=== PATIENT | male | born 1985 | race Caucasian/White ===

== ENCOUNTER 2016-07-05 08:42 | Emergency (ER) | payer OTHER ==
[2016-07-05 08:51] VITALS: TEMP 97.4
--- NOTE | 2016-07-05 09:02 | ED ---
Chest Pain HPI - General Chief Complaint: Chest Pain Stated Complaint: rib pain Time Seen by Provider: 07/05/16 08:53 Source: patient, RN notes reviewed Mode of arrival: ambulatory - History of Present Illness Initial Comments: 31-year-old male presents to the emergency department with a chief complaint of left-sided chest wall pain. Patient states that this started a few days ago. Patient states it was after having intercourse. Patient states he felt a pop and since he just had this pain certain movements make it worse touching it makes it worse if he takes huge breath it makes it worse. Patient denies any history of anything like this in the past. Patient denies any fever chills this. Patient states she was concerned due to his continued symptoms so he thought that he should be evaluated. Patient denies any recent fever, chills, shortness of breath, back pain, abdominal pain, nausea vomiting, numbness or tingling, dysuria or hematuria, constipation or diarrhea, headaches or visual changes, or any other current symptoms. - Related Data Home Medications Medication Instructions Recorded Confirmed Ibuprofen [Motrin] 600 - 800 mg PO Q6HR PRN 07/05/16 07/05/16 Allergies Allergy/AdvReac Type Severity Reaction Status Date / Time No Known Allergies Allergy Verified 07/05/16 09:13 Review of Systems ROS Statement: Those systems with pertinent positive or pertinent negative responses have been documented in the HPI. ROS Other: All systems not noted in ROS Statement are negative. Past Medical History Past Medical History: No Reported History History of Any Multi-Drug Resistant Organisms: None Reported Past Surgical History: No Surgical Hx Reported Past Psychological History: No Psychological Hx Reported Smoking Status: Current every day smoker Past Alcohol Use History: Occasional Past Drug Use History: Marijuana General Exam General appearance: alert, in no apparent distress Head exam: Present: atraumatic, normocephalic, normal inspection Neck exam: Present: normal inspection. Absent: tenderness, meningismus, lymphadenopathy Respiratory exam: Present: normal lung sounds bilaterally, chest wall tenderness (Left upper lateral chest wall over rib cage). Absent: respiratory distress, wheezes, rales, rhonchi, stridor Cardiovascular Exam: Present: regular rate, normal rhythm, normal heart sounds. Absent: systolic murmur, diastolic murmur, rubs, gallop, clicks Back exam: Present: normal inspection Neurological exam: Present: alert, oriented X3 Psychiatric exam: Present: normal affect, normal mood Course Vital Signs 07/05/16 07/05/16 08:48 09:20 Temperature 97.4 F L Pulse Rate 59 L 80 Respiratory 17 16 Rate Blood Pressure 122/78 134/68 O2 Sat by Pulse 98 98 Oximetry Chest Pain MDM - MDM 31-year-old male presents emergency Department chief complaint of left-sided rib pain. At this time the patient's x-rays revealed that does not show an acute fracture. This time we discussed patient appears to have a left rib sprain. This time we discussed ice to the area Motrin Tylenol for pain. We discussed follow up with Dr. jules carreno. Patient stated that he understood and all his questions have been answered. He will be discharged home. Disposition Clinical Impression: Sprain of ribs, initial encounter Disposition: HOME SELF-CARE Condition: Stable Instructions: Rib Contusion (ED) Additional Instructions: Please use medication as discussed. Please follow up with family doctor if symptoms have not improved over the next two days. Please return to the emergency room if your symptoms increase or worsen or for any other concerns. Referrals: Estelita Sarabia MD [STAFF PHYSICIAN] - 1-2 days Time of Disposition: 09:26
--- NOTE | 2016-07-05 09:16 | XR ---
EXAMINATION TYPE: XR ribs LT w pa chest x-ray DATE OF EXAM ORDERED: 07/05/2016 9:08 AM HISTORY: Pain. COMPARISON: None. FINDINGS: The lungs appear clear. Pleural spaces are clear. Heart size is normal. No displaced rib f racture is seen. IMPRESSION: NORMAL CHEST AND LEFT RIBS.
[2016-07-05 09:24] VITALS: BP 134/68; PULSE 80; RESP 16
== END 2016-07-05 09:44 | disposition home or self-care (01) ==
LOC: EC 08:42
DX: S23.41XA Sprain of ribs, initial encounter (principal); F17.200 Nicotine dependence, unspecified, uncomplicated; X58.XXXA Exposure to other specified factors, initial encounter
CPT/HCPCS: 99284

== ENCOUNTER 2019-12-20 00:03 | Emergency (ER) | payer OTHER ==
[2019-12-20 00:14] VITALS: BP 138/73; PULSE 67; RESP 20; TEMP 98.9
[2019-12-20] MEDS ORDERED: ACET/COD 300 MG/30 MG STARTER PACK 6 TAB BTL PO STA (01:03)
[2019-12-20] MEDS ORDERED: AMOXIC-POT CLAV 875MG STARTER PACK 2 TAB BTL PO STA (01:04)
[2019-12-20] MEDS ORDERED: KETOROLAC 15 MG/ML 1 ML VIAL IM STA (01:04)
--- NOTE | 2019-12-20 01:10 | ED ---
General Adult HPI - General Chief complaint: Dental/Oral Stated complaint: LT sided jaw pain Time Seen by Provider: 12/20/19 00:31 Source: patient Mode of arrival: ambulatory Limitations: no limitations - History of Present Illness Initial comments: 34-year-old male presents to emergency department with complaints of pain from 2 broken teeth on the left lower jaw, onset 2 days prior to arrival. States he has not obtained relief with any [id number] medications. Patient denies fever or chills. Denies any difficulty opening or closing his mouth. Denies difficulty swallowing. States he has been unable to follow-up with a dentist as of yet. Patient denies any recent rash, cough, shortness of breath, chest pain, abdominal pain, nausea, vomiting, diarrhea, constipation, back pain, numbness, tingling, dizziness, weakness, hematuria, dysuria, urinary urgency, urinary frequency, headache, visual changes, or any other complaints. - Related Data Previous Rx's Medication Instructions Recorded Amoxic-Pot Clav 875-125Mg 1 tab PO Q12HR #20 tablet 12/20/19 [Augmentin 875-125] Ibuprofen [Motrin] 600 mg PO Q8HR PRN #30 tab 12/20/19 Allergies Allergy/AdvReac Type Severity Reaction Status Date / Time No Known Allergies Allergy Verified 12/20/19 00:13 Review of Systems ROS Statement: Those systems with pertinent positive or pertinent negative responses have been documented in the HPI. ROS Other: All systems not noted in ROS Statement are negative. Past Medical History Past Medical History: No Reported History History of Any Multi-Drug Resistant Organisms: None Reported Past Surgical History: No Surgical Hx Reported Past Psychological History: No Psychological Hx Reported Smoking Status: Never smoker Past Alcohol Use History: Occasional Past Drug Use History: Marijuana General Exam Limitations: no limitations (Well-developed, well-nourished male in no acute distress. Initial temperature 98.9F, pulse 67, respirations 20, blood pressure 138/73, pulse ox 100% on room air.) General appearance: alert, in no apparent distress Expanded Teeth exam: Present: dental caries, fractured tooth # (17 & 18), other (No evidence of abscess) Respiratory exam: Present: normal lung sounds bilaterally. Absent: respiratory distress, wheezes, rales, rhonchi, stridor Cardiovascular Exam: Present: regular rate, normal rhythm, normal heart sounds. Absent: systolic murmur, diastolic murmur, rubs, gallop, clicks Neurological exam: Present: alert, oriented X3, CN II-XII intact Psychiatric exam: Present: normal affect, normal mood Course Vital Signs 12/20/19 00:11 Temperature 98.9 F Pulse Rate 67 Respiratory 20 Rate Blood Pressure 138/73 O2 Sat by Pulse 100 Oximetry Medical Decision Making - Medical Decision Making 34-year-old male presents to emergency department this evening with 2 day history of left lower jaw pain related to 2 broken teeth. Patient has poor dentition and has unable to follow-up with a dentist for further evaluation and treatment. No fever or evidence of abscess. States over the counter medication has not been adequate to control his pain. Antibiotic and anti-inflammatory treatments initiated while present in the department; patient reports modest improvement. Strongly encouraged to follow-up with a dentist as soon as possible. Discussed importance of taking full duration of antibiotic as prescribed. Return parameters were discussed in detail. Patient verbalizes understanding and agrees with this plan. Disposition Clinical Impression: Dental caries Disposition: HOME SELF-CARE Condition: Good Instructions (If sedation given, give patient instructions): Toothache (ED) Additional Instructions: Take full course of antibiotic as prescribed. Use Motrin for pain. Follow-up with the dentist as soon as possible for further evaluation and treatment. Return to the emergency department with any new, worsening, or concerning symptoms. Prescriptions: Amoxic-Pot Clav 875-125Mg [Augmentin 875-125] 1 tab PO Q12HR #20 tablet Ibuprofen [Motrin] 600 mg PO Q8HR PRN #30 tab PRN Reason: Pain Is patient prescribed a controlled substance at d/c from ED?: No Referrals: None,Stated [Primary Care Provider] - 1-2 days Time of Disposition: 01:09
== END 2019-12-20 01:35 | disposition home or self-care (01) ==
LOC: EC 00:03
DX: K02.9 Dental caries, unspecified (principal)
CPT/HCPCS: 99283; 96372; J1885

== ENCOUNTER 2022-09-27 01:19 | Emergency (ER) | payer OTHER ==
[2022-09-27 01:26] VITALS: BP 136/80; PULSE 99; RESP 16; TEMP 98.2
[2022-09-27] MEDS ORDERED: DIPH,PERTUS(ACELL)TETVAC-LF 0.5 ML VIAL IM ONE (01:55)
--- NOTE | 2022-09-27 02:06 | ED ---
General Adult HPI - General Chief complaint: Extremity Injury, Lower Stated complaint: Swollen left leg Time Seen by Provider: 09/27/22 01:49 Source: patient, RN notes reviewed, old records reviewed Mode of arrival: ambulatory Limitations: no limitations - History of Present Illness Initial comments: 37-year-old well-appearing male presents ambulatory with complaints of abrasions to his left leg after sliding during baseball Sunday. Patient states he has been washing the wound and abrasions with soap and water. Been getting increasingly swollen today he used alcohol wipes and putting neosporin in it but now has white drainage over abrasions and increased redness to lower leg. States his tetanus shot is not up-to-date. He is a daily smoker. No other medical history. -: days(s) (4) Location: left, lower extremity (lower leg) Radiation: non-radiation Severity scale (1-10): 3 Quality: constant, other (swollen) Associated Symptoms: denies other symptoms Treatments Prior to Arrival: other (alcohol wipes and neosporin) - Related Data Previous Rx's Medication Instructions Recorded Amoxic-Pot Clav 875-125Mg 1 tab PO Q12HR #20 tablet 12/20/19 [Augmentin 875-125] Ibuprofen [Motrin] 600 mg PO Q8HR PRN #30 tab 12/20/19 Bacitracin Zinc/Polymyxin B 1 applic TOPICAL BID 5 Days #15 gm 09/27/22 [Bacitracin-Polymyxin Ointment] Cephalexin [Keflex] 500 mg PO Q6HR 7 Days #28 cap 09/27/22 Allergies Allergy/AdvReac Type Severity Reaction Status Date / Time No Known Allergies Allergy Verified 12/20/19 00:13 Review of Systems ROS Statement: Those systems with pertinent positive or pertinent negative responses have been documented in the HPI. ROS Other: All systems not noted in ROS Statement are negative. Past Medical History Past Medical History: No Reported History History of Any Multi-Drug Resistant Organisms: None Reported Past Surgical History: No Surgical Hx Reported Past Psychological History: No Psychological Hx Reported Smoking Status: Never smoker Past Alcohol Use History: Occasional Past Drug Use History: Marijuana General Exam Limitations: no limitations General appearance: alert, in no apparent distress Head exam: Present: atraumatic Eye exam: Present: normal appearance. Absent: scleral icterus, conjunctival injection, periorbital swelling Neck exam: Present: full ROM. Absent: tenderness, meningismus Respiratory exam: Present: normal lung sounds bilaterally. Absent: respiratory distress, accessory muscle use Cardiovascular Exam: Present: regular rate, normal rhythm Extremities exam: Present: other (Clubbing of fingers) Left Lower Leg exam: Present: full ROM, tenderness, swelling, abrasion (Left knee and left lateral lower leg), erythema. Absent: palpable cord, Homans' sign Neurovascular tendon exam: Present: no vascular compromise. Absent: abnormal cap refill, motor deficit, sensory deficit, tendon deficit, extremity cold to touch, foot drop Back exam: Present: full ROM. Absent: tenderness Neurological exam: Present: alert, oriented X3, normal gait Psychiatric exam: Present: normal affect, normal mood Skin exam: Present: warm, dry, normal color. Absent: cyanosis, diaphoretic, petechiae, pallor Course Vital Signs 09/27/22 01:22 Temperature 98.2 F Pulse Rate 99 Respiratory 16 Rate Blood Pressure 136/80 O2 Sat by Pulse 98 Oximetry Medical Decision Making - Medical Decision Making Was pt. sent in by a medical professional or institution (, PA, [employer], urgent care, hospital, or shelter...) When possible be specific @ -No Did you speak to anyone other than the patient for history (EMS, parent, family, police, friend...)? What history was obtained from this source @ -No Did you review nursing and triage notes (agree or disagree)? Why? @ -I reviewed and agree with nursing and triage notes Were old charts reviewed (outside hosp., previous admission, EMS record, old EKG, old radiological studies, urgent care reports/EKG's, shelter records)? Report findings @ -No old charts were reviewed Differential Diagnosis (chest pain, altered mental status, abdominal pain women, abdominal pain men, vaginal bleeding, weakness, fever, dyspnea, syncope, headache, dizziness, GI bleed, back pain, seizure, CVA, palpatations, mental health, musculoskeletal)? @ -Cellulitis, abscess, abrasion, contusion, vasculitis, this is not an all inclusive list EKG interpreted by me (3pts min.). @ -n/a X-rays interpreted by me (1pt min.). @ -None done CT interpreted by me (1pt min.). @ -None done U/S interpreted by me (1pt. min.). @ -None done What testing was considered but not performed or refused? (CT, X-rays, U/S, labs)? Why? @ -None What meds were considered but not given or refused? Why? @ -None Did you discuss the management of the patient with other professionals (professionals i.e. DrErlinda, PA, [employer], lab, RT, psych nurse, social science manager, otc clerk, teacher, cavalry officer, life sciences manager)? Give summary @ -No Was smoking cessation discussed for >3mins.? @ -Yes Was critical care preformed (if so, how long)? @ -[No] Were there social determinants of health that impacted care today? How? (Homelessness, low income, unemployed, alcoholism, drug addiction, transportation, low edu. Level, literacy, decrease access to med. care, [place] [facility], rehab)? @ -[No] Was there de-escalation of care discussed even if they declined (Discuss DNR or withdrawal of care, Hospice)? DNR status @ -[No] What co-morbidities impacted this encounter? (DM, HTN, Smoking, COPD, CAD, Cancer, CVA, ARF, Chemo, Hep., AIDS, mental health diagnosis, sleep apnea, morbid obesity)? @ -Smoker Was patient admitted / discharged? Hospital course, mention meds given and route, prescriptions, significant lab abnormalities, going to OR and other perti nent info. @ -discharged 37-year-old well-appearing male presents ambulatory with complaints of abrasions to his left leg after sliding during baseball Sunday. Patient states he has been washing the wound and abrasions with soap and water. Been getting increasingly swollen today he used alcohol wipes and putting neosporin in it but now has white drainage over abrasions and increased redness to lower leg. States his tetanus shot is not up-to-date. He is a daily smoker. No other medical history. Patient is able to ambulate. Patient's tetanus shot was updated. Keflex prescribed 4 times a day for the next 7 days for cellulitis. He was instructed to stop smoking as this will prolong his healing and may cause further complications. He was also instructed not to use alcohol on the wounds. Topical bacitracin dressings twice a day, not neosporin. Dr. Carter at bedside to evaluate. Patient was directed to return to the emergency room with any new or concerning symptoms including increased pain, swelling, redness or fevers. He is agreeable to this plan of care. Undiagnosed new problem with uncertain prognosis? @ -[No] Drug Therapy requiring intensive monitoring for toxicity (Heparin, Nitro, Insulin, Cardizem)? @ -[No] Were any procedures done? @ -[No] Diagnosis/symptom? @ -Multiple abrasions with surrounding cellulitis left lower leg Acute, or Chronic, or Acute on Chronic? @ -Acute Uncomplicated (without systemic symptoms) or Complicated (systemic symptoms)? @ -Uncomplicated Side effects of treatment? @ -[No] Exacerbation, Progression, or Severe Exacerbation? @ -[No] Poses a threat to life or bodily function? How? (Chest pain, [place], NH, pneumonia, PE, COPD, DKA, ARF, appy, cholecystitis, CVA, Diverticulitis, Homicidal, Suicidal, threat to staff... and all critical care pts) @ -[No] Disposition Clinical Impression: Abrasion, leg w/ infection, Cellulitis of leg, left Disposition: HOME SELF-CARE Condition: Good Instructions (If sedation given, give patient instructions): Cellulitis (ED), Abrasion (ED) Additional Instructions: Place a thin layer of bacitracin over abrasions twice a day and keep covered. Take antibiotics as prescribed. Return to the emergency room with any new or concerning symptoms including increased pain, redness, swelling or fevers. Prescriptions: Bacitracin Zinc/Polymyxin B [Bacitracin-Polymyxin Ointment] 1 applic TOPICAL BID 5 Days #15 gm Cephalexin [Keflex] 500 mg PO Q6HR 7 Days #28 cap Is patient prescribed a controlled substance at d/c from ED?: No Referrals: None,Stated [Primary Care Provider] - 1-2 days Time of Disposition: 02:08
[2022-09-27] MEDS ORDERED: CEPHALEXIN 500 MG CAP PO STA (02:08)
[2022-09-27] MEDS ORDERED: BACITRACIN OINT 1 EACH PACKET TOPICAL ONE (02:16)
== END 2022-09-27 02:26 | disposition home or self-care (01) ==
LOC: EC 01:19
DX: S80.812A Abrasion, left lower leg, initial encounter (principal); L03.116 Cellulitis of left lower limb; F12.90 Cannabis use, unspecified, uncomplicated; Z23 Encounter for immunization; X58.XXXA Exposure to other specified factors, initial encounter; Y93.64 Activity, baseball
CPT/HCPCS: 90471; 90715; 99283; 99406